=== PATIENT | male | born 1970 ===

== ENCOUNTER 2019-01-01 01:41 | Inpatient (IN) | payer MEDICARE ==
[2018-12-31 15:54] LABS: INR 1.11
[~2019-01-01] VITALS: Ht 160 cm; Wt 110.7 kg
[2019-01-01] VITALS (16 sets, daily range): BP systolic 105–164; BP diastolic 67–110
[~2019-01-01 01:41] MED LIST: ATOR20TA22 PO; CARB-83 PO; CITA-145 PO; FENO145T36 PO; LOSA100T75 PO; NAPR220C12 PO; OMEG1CAP60 PO; RANI-54 PO
[2019-01-01] MEDS ORDERED: LIDOCAINE MPF 1% 5 ML VIAL ONE (07:29)
[2019-01-01] MEDS ORDERED: PROPOFOL EMUL(*) 10MG/ML 20 ML 20 ML ONE (07:29)
[2019-01-01] MEDS ORDERED: DEXAMETHASONE SOD 4 MG/ML VIAL ONE (07:29)
[2019-01-01] MEDS ORDERED: ONDANSETRON 4 MG/2 ML VIAL ONE (07:29)
[2019-01-01] MEDS ORDERED: ACETAMINOPHEN 500 MG TAB PO ONE (10:40)
[2019-01-01] MEDS ORDERED: ROPIVACAINE/EPI/CLONIDINE/KET 50 ML SYRINGE INJ ONE (10:40)
[2019-01-01] MEDS ORDERED: MIDAZOLAM 2 MG/2 ML VIAL IVP PRN (10:40)
[2019-01-01] MEDS ORDERED: CELECOXIB 200 MG CAP PO ONE (10:40)
[2019-01-01] MEDS ORDERED: NORMOSOL R SOLN(*) 1000 ML BAG 1,000 ML IV PRN (10:40)
[2019-01-01] MEDS ORDERED: PREGABALIN 150 MG CAPSULE PO ONE (10:40)
[2019-01-01] MEDS ORDERED: VANCOMYCIN(*) 1 GM VIAL 1 GM, VANCOMYCIN HCL 0.750 GM VIAL 0.75 GM in NS(*) 0.9% 250 ML... IVPB ONE (10:40)
[2019-01-01] MEDS ORDERED: TRANEXAMIC AC 1000 MG/10ML SDV 1,000 MG in DEXTROSE 5% 50 ML BAG 50 ML IV ONE (10:40)
[2019-01-01] MEDS ORDERED: LIDOCAINE/SOD BICARB 8.4% SYR ID ONE (10:40)
[2019-01-01] MEDS ORDERED: THROMBIN TOP SOLN 5000INTLU VL ONE (11:14)
[2019-01-01] MEDS ORDERED: fentaNYL CITR 250 MCG/5 ML AMP ONE (11:35)
[2019-01-01] MEDS ORDERED: ROCURONIUM BROM 10 MG/ML 10 ML ONE (12:42)
[2019-01-01] MEDS ORDERED: SUGAMMADEX SOD 200 MG/2 ML SDV ONE (14:06)
[2019-01-01] MEDS ORDERED: fentaNYL CITR 100 MCG/2 ML AMP ONE (14:15)
--- NOTE | 2019-01-01 15:23 | OPERATIVE REPORT 1 ---
EVENT DATE: January 01, 2019 SURGEON: Jose Rangel MD ANESTHESIOLOGIST: Nima Lorenzo MD ANESTHESIA: General. HEALTH SCIENCE INSTRUCTOR: Adilson Marin PA-C PREOPERATIVE DIAGNOSES 1. Status post chronic brain injury. 2. 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 POSTOPERATIVE DIAGNOSES 1. Status post chronic brain injury. 2. 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 PROCEDURE PERFORMED Left total shoulder arthroplasty (97500) ESTIMATED BLOOD LOSS 150. INTRAVENOUS FLUIDS Crystalloid 1500, no colloid. TOURNIQUET TIME None. SPECIMENS None. COMPLICATIONS None. IMPLANTS USED [employer] 52 Abell Peg Glenoid, 14 stem, 14 body, 56 x 21 eccentric head with local allograft used (34859). SUMMARY OF PROCEDURE The patient was brought into the operating room and placed on the OR table in the supine position. After attaining adequate general anesthesia, the left upper extremity was prepped and draped in the usual sterile fashion. He was placed in the semi-beach chair position, and then his left shoulder was assessed. He did have a significant decreased capacity for external rotation due to his subscapularis contracture. We prepared a deltopectoral approach after the adequate prep and drape and then identified the cephalic vein which was left with the deltoid. The pectoralis superior portion of approximately 7 to 10 mm was released for better exposure. I considered releasing the latissimus a bit because it was also quite tight, but we were able to work around this and left it intact. We identified the biceps sheath, which was very swollen. We incised the subscapularis and placed traction sutures after having palpated the axillary nerve to identify its position. There were a lot of osteophytes that had to be removed, but before doing this, we made our initial cut. My plan was to go with less retroversion than normal, but we did have to match his head to some extent, so what we ended up doing is splitting the difference between where we really needed it to go based on his position that he generally carries the arm versus the anatomy and what would be allowable. So, the cut was made. We confirmed that the cut did not compromise the rotator cuff and also that the rotator cuff itself was in good condition having confirmed that the fluid was clear without sign of infection. Osteophytes were then removed. We placed a protective cap and then worked on getting exposure of the glenoid by stripping tissues around it peripherally as well as on the neck of the humerus. Also, when we got very good visualization of the glenoid, there was some anterior defect formation that made it look a little bit like a kidney ivey shape. It was also very large from anterior to posterior as well as superior to inferior. The head measured 56, so we planned a 52. It would have been nice to be able to use a 48, but that was just not big enough to fit with the head he needed. Ultimately, we were able to get the central hole set. It took quite a while to find the appropriate retractor to allow for adequate exposure while still allowing for reaming, and ultimately we actually had to take the posterior retractor out altogether and just push the head to the side with the reamer in order to get into the central hole and ream with the 56. The glenoid had been relatively flat. It was dysmorphic, so we had to ream quite a bit, but ultimately we got a good rear surface and then drilled the peripheral holes. We trialed with a pegged glenoid, and it fit well. We removed this and then irrigated everything. We injected local anesthetic around the glenoid capsule and in the deep tissues and also put Irrisept in and then irrigated that out after waiting about a minute. We placed Gelfoam-soaked sponges into the holes and then mixed cement. The peripheral three holes were injected with cement, and we impacted the glenoid, holding it in position until full polymerization. We then went on to the humeral head. We did axial reaming up to a 14 and then did the Brosteotome, followed by the regular regino, but it was clear that his medullary canal was filled with a dysmorphic tissue that was very butter-like. It did not look like purulence, but it certainly did not have a lot of consistency. For that reason, I split up the head and removed quite a bit of the cancellous bone from the head, which was very firm. We used this to help support the proximal aspect of the implant. With the trial in place, we trialed a couple different types of heads, but ultimately settled on a 21 x 56 eccentric head. The trial was removed. We drilled four drill holes in the anterior face for the subsequent subscapularis repair and placed sutures in these, and then we placed the final implant. Before hammering it down all the way into a seated position, I placed the head on the Alcantar taper in the appropriate eccentric position and then placed this further down where such it was flush with the rotator cuff insertion. We irrigated again, placed Irrisept again, waited a bit, then washed it out, and repaired the subscapularis using both the transosseous sutures placed previously as well as standard soft tissue repair. The biceps had been released when we were exposing the glenoid, and it was quite thickened. It was already tethered at its exit point, so other than making sure that there was nothing that would block the joint, I did let it be. The wound was irrigated one final time before closing the deltoid fascia with a Vicryl suture, followed by 3-0 Vicryl for the subcutaneous layer, and then 4-0 Monocryl for the subcuticular layer. He was given a dry, sterile dressing. He was awakened and transferred to the recovery room in stable condition with a rotator cuff style sling in place to allow for better positioning and hopefully to combat his tendency to internally rotate. DEEPA
[2019-01-01] MEDS ORDERED: LABETALOL HCL 25 MG/5 ML SYRINGE ONE (15:31)
--- NOTE | 2019-01-01 15:31 | RADIOLOGY IMAGING REPORT ---
FACILITY: [facility] PATIENT NAME: Alex Posadas : 1970 MR: [id number] V: [id number] EXAM DATE: ORDERING PHYSICIAN: YARELIS GUILLEN TECHNOLOGIST: Location: [facility] - [place] Patient: Alex Posadas : 1970 Visit/Account:[id number] Date of Sevice: 01/01/2019 3 views left shoulder Indication: S/P TOTAL SHOULDER ARTHROPLASTY, CHECK PLACEMENT Comparison: Unavailable Findings: Post surgical changes noted from left shoulder arthroplasty. No gross complications identified. IMPRESSION: Grossly unremarkable postoperative changes from left shoulder arthroplasty. Report Dictated By: Juan Diego Nixon MD at 01/01/2019 3:25 PM Report E-Signed By: Juan Diego Nixon MD at 01/01/2019 3:26 PM WSN:CARLINE
[2019-01-01] MEDS ORDERED: PROMETHAZINE 25 MG/ML 1 ML AMP IVP PRN (15:40)
[2019-01-01] MEDS ORDERED: NALOXONE HCL 0.4 MG/ML VIAL IVP PRN (15:40)
[2019-01-01] MEDS ORDERED: ACETAMINOPHEN 500 MG TAB PO PRN (15:40)
[2019-01-01] MEDS ORDERED: FLUSH 10 ML SYR IVP PRN (15:40)
[2019-01-01] MEDS ORDERED: MORPHINE 50 MG/50 ML PCA BAG IV PRN (15:40)
[2019-01-01] MEDS ORDERED: MAGNESIUM CITRATE 300 ML BTL PO PRN (15:40)
[2019-01-01] MEDS ORDERED: KCL/D5LR 20 MEQ/1000 ML PREMIX 1,000 ML IV PRN (15:40)
[2019-01-01] MEDS ORDERED: ONDANSETRON 4 MG/2 ML VIAL IVP PRN (15:40)
[2019-01-01] MEDS ORDERED: diphenhydrAMINE 25 MG CAP PO PRN (15:40)
[2019-01-01] MEDS ORDERED: PCA LOCKBOX KEYS XX PRN (16:05)
--- NOTE | 2019-01-01 16:48 | Hospitalist Consultation ---
History of Present Illness Requesting Physician Dr. Rangel Reason for Consult Medical Management Chief Complaint s/p left shoulder replacement History of Present Illness He was admitted s/p left shoulder replacement. It is reported the surgery went well and without complication. History Problems: (1) TBI (traumatic brain injury) Status: Chronic (2) DELROY (obstructive sleep apnea) Status: Chronic (3) Hypertension Status: Chronic (4) Seizure disorder Status: Chronic (5) Depression Status: Chronic Home Meds Reported Medications Fenofibrate Nanocrystallized (FENOFIBRATE) 145 Mg Tablet, 145 MG PO QDAY 12/25/18 Ranitidine Hcl (ZANTAC) 150 Mg Tablet, 150 MG PO BID, TAB 12/25/18 Naproxen Sodium (ALEVE) 220 Mg Capsule, 220 MG PO BID, CAPSULE 12/25/18 Citalopram Hydrobromide (CITALOPRAM HBR) 20 Mg Tablet, 20 MG PO BID, #5 TAB 12/25/18 Carbamazepine (TEGRETOL XR) 200 Mg Tab.er.12h, 200 MG PO BID 12/25/18 Losartan Potassium (LOSARTAN POTASSIUM) 100 Mg Tablet, 100 MG PO QDAY 12/25/18 Atorvastatin Calcium (LIPITOR) 20 Mg Tablet, 1 TAB PO HS, TAB 12/25/18 Discontinued Reported Medications Veneta-3 Acid Ethyl Esters (Veneta-3 Acid Ethyl Esters) 1 Gm Capsule, 2 CAP PO BID 12/25/18 Allergies: Coded Allergies: No Known Drug Allergies (Unverified , 12/25/18) Patient History: FH: heart attack Hx Smoking: Yes (QUIT 1987) Smoking Status: Former Smoker Exposure to Second Hand Smoke?: Yes ( CHILD) Caffeine Intake: Soda Caffeine/Cups Per Day: 12 CUPS Hx Alcohol Use: No Hx Substance Use Disorder: No History of IV Drug Use: No Review of Systems All Systems Reviewed/Normal: Yes, Except as Noted Exam Vital Signs Vital Signs Date Time Temp Pulse Resp B/P (MAP) Pulse Ox O2 Delivery O2 Flow Rate FiO2 01/01/19 16:30 92 20 93 01/01/19 16:30 98.7 110/ Nasal Cannula 3.0 General Appearance: Awake, No Acute Distress Cardiovascular: Regular Rate and Rhythm Respiratory: No Respiratory Distress Psych: Appropriate Mood & Affect Medical Decision Making Data Points Result Diagram: 01/01/19 6263 Assessment and Plan Problems: (1) Status post replacement of left shoulder joint Status: Acute Assessment & Plan: Followed by Dr. Rangel. (2) Hypertension Status: Chronic Assessment & Plan: Continue chronic Losartan with hold parameters. (3) DELROY (obstructive sleep apnea) Status: Chronic Assessment & Plan: Continue chronic CPAP. (4) Seizure disorder Status: Chronic Assessment & Plan: Continue chronic Tegretol. (5) Depression Status: Chronic Assessment & Plan: Continue chronic Citalopram. (6) TBI (traumatic brain injury) Status: Chronic (7) Hyperlipidemia Status: Chronic Assessment & Plan: Continue chronic Fenofibrate and Atorvastatin. Venous Thromboembolism Antithrombotics Is Pt On Any Antithrombotics?: No Problem Qualifiers (1) Hypertension: Hypertension type: essential hypertension Qualified Codes: I10 - Essential (primary) hypertension DUNCAN SERRATO [facility] Jan 01, 2019 16:48
[2019-01-01] MEDS: oxyCODON/ACET (*)5/325MG (CII) 1 TAB TAB PO PRN (17:40)
[2019-01-01] MEDS ORDERED: ATORVASTATIN 10 MG TAB PO SCH (21:00)
[2019-01-01] MEDS: RANITIDINE HCL 150 MG TAB PO SCH (21:44)
[2019-01-01] MEDS: CITALOPRAM HYDROBROM 20 MG TAB PO SCH (21:45)
[2019-01-02] VITALS: BP 105/86
[2019-01-02 01:00] VITALS: BP 115/70
[2019-01-02 02:00] VITALS: BP 117/79
[2019-01-02 03:00] VITALS: BP 133/84
[2019-01-02] MEDS: oxyCODON/ACET (*)5/325MG (CII) 1 TAB TAB PO PRN ×2 (03:38→09:07)
[2019-01-02 07:24] VITALS: BP 119/80
[2019-01-02] MEDS ORDERED: OXYC5CAP21 PO (07:33)
[2019-01-02] MEDS ORDERED: FENOFIBRATE,MICRON 145 MG TAB PO SCH (09:00)
[2019-01-02] MEDS ORDERED: LOSARTAN POTASSIUM 50 MG TAB PO SCH (09:00)
[2019-01-02] MEDS: CITALOPRAM HYDROBROM 20 MG TAB PO SCH (09:07)
[2019-01-02] MEDS: RANITIDINE HCL 150 MG TAB PO SCH (09:08)
--- NOTE | 2019-01-02 11:20 | Hospitalist Progress Note ---
Subjective Progress Notes Subjective He was admitted s/p shoulder replacement. He had no acute events overnight. Patient Complains of: Cardiovascular: No: Chest Pain Respiratory: No: Shortness of Breath Physical Exam Vital Signs Date Time Temp Pulse Resp B/P (MAP) Pulse Ox O2 Delivery O2 Flow Rate FiO2 01/02/19 07:24 98.8 85 16 119/80 (93) 93 Nasal Cannula 1.0 Intake and Output 01/02/19 06:59 Intake Total 2070 ml Output Total 150 ml Balance 1920 ml Intake Oral 270 ml IV Total 1800 ml Output Estimated Blood Loss 150 ml # Voids 1 # Emeses 1 General Appearance: Alert, Awake, No Acute Distress, Afebrile Neuro: No Gross deficits Cardiovascular: Regular Rate and Rhythm Respiratory: No Respiratory Distress, Clear to Auscultation GI: Soft and Non-Tender Psych: Alert & Oriented X3, Appropriate Mood & Affect Result Diagram: 01/01/19 1511 Assessment and Plan Problems: (1) Status post replacement of left shoulder joint Status: Acute Assessment & Plan: Followed by Dr. Rangel. (2) Hypertension Status: Chronic Assessment & Plan: Continue chronic Losartan with hold parameters. (3) DELROY (obstructive sleep apnea) Status: Chronic Assessment & Plan: Continue chronic CPAP. (4) Seizure disorder Status: Chronic Assessment & Plan: Continue chronic Tegretol. (5) Depression Status: Chronic Assessment & Plan: Continue chronic Citalopram. (6) TBI (traumatic brain injury) Status: Chronic (7) Hyperlipidemia Status: Chronic Assessment & Plan: Continue chronic Fenofibrate and Atorvastatin. Exam Sepsis Risk: No Definite Risk Problem Qualifiers (1) Hypertension: Hypertension type: essential hypertension Qualified Codes: I10 - Essential (primary) hypertension DUNCAN SERRATO [employer] Jan 02, 2019 11:20
--- NOTE | 2019-01-02 11:40 | NUR ---
Occupational Therapy Impression Pt alert and agreeable to OT tx. Spouse present. Pt with increased blood pressure upon standing, decreased blood pressure upon returning to supine in bed. Pt diaphoretic, O2 WNL on 1L, pain at 8/10 throughout tx. Ice applied. Nursing informed. Pt declining further needs at end of tx. Pt has met skilled OT goals. Recommend discharge home when medically appropriate. Spouse has arranged outpatient PT appt. and plans to assist with ADLs/IADLs as needed. Pt and spouse with no further questions/concerns for OT at end of tx. Occupational Therapy Goals Patient's Goal
[2019-01-02 14:58] VITALS: BP 131/85
== END 2019-01-02 15:47 | disposition home or self-care (01) | DRG 483 ==
LOC: OR 01:41 → MED 16:30
PROVIDERS: ADMIT Orthopaedic Surgery Hand Surgery; ATTEND Orthopaedic Surgery Hand Surgery
PROC: 0RRK0JZ Replacement of Left Shoulder Joint with Synthetic Substitute, Open Approach (ICD-10-PCS; principal; 2019-01-01 11:53)
DX: M19.012 Primary osteoarthritis, left shoulder (principal); M21.822 Other specified acquired deformities of left upper arm; I10 Essential (primary) hypertension; G47.33 Obstructive sleep apnea (adult) (pediatric); K21.9 Gastro-esophageal reflux disease without esophagitis; F32.9 Major depressive disorder, single episode, unspecified; E78.5 Hyperlipidemia, unspecified; G40.909 Epilepsy, unspecified, not intractable, without status epilepticus; Z87.820 Personal history of traumatic brain injury; Z87.891 Personal history of nicotine dependence
CPT/HCPCS: 36415; 85014; 85018; 85610; 86850; 86900; 86901; 97165; A4565; C1713; C1776; J1100; J2001; J2250; J2405; J2704; J3010; J3370; J7050; J7060